=== PATIENT | male | born 1985 | race Caucasian/White ===

== ENCOUNTER 2017-05-18 16:59 | Emergency (ER) | payer OTHER ==
[~2017-05-18] VITALS: Ht 172.7 cm; Wt 86.8 kg
[2017-05-18] MEDS ORDERED: FLEXERIL5 MG PO (20:14)
[2017-05-18] MEDS ORDERED: MOTRIN600 MG PO (20:14)
[2017-05-18 20:41] VITALS: BP 141/74
== END 2017-05-18 20:43 | disposition home or self-care (01) ==
LOC: EME 16:59
DX: S16.1XXA Strain of muscle, fascia and tendon at neck level, initial encounter (principal); V44.5XXA Car driver injured in collision with heavy transport vehicle or bus in traffic accident, initial encounter
CPT/HCPCS: 99281; 99283